=== PATIENT | male | born 1995 | race Caucasian/White ===

== ENCOUNTER 2017-08-24 20:57 | Emergency (ER) | payer SELFPAY ==
[~2017-08-24] VITALS: Ht 162.6 cm; Wt 80.6 kg
[2017-08-24 21:01] VITALS: TEMP 37.4; Ht 162.6 cm; Wt 80.6 kg
[2017-08-24] MEDS ORDERED: SODIUM CHLORIDE 0.9% 1000ML 1,000 ML IV STA (21:22)
--- NOTE | 2017-08-24 21:28 | EMERGENCY ROOM VISIT NOTE ---
History Report prepared by Ceciliaibanival: Colby Prater Under the Supervision of: Dr. Juan Palmer M.D. First contact with patient: 21:15 Chief Complaint: CHEST PAIN Stated Complaint: CHEST PAIN, HEART SKIPPING, DIZZY, BLACKING OUT History of Present Illness The patient is a 22 year old male who presents to the Emergency Room with complaints of constant chest pain that started yesterday. He rates his discomfort as a 5/10 in severity. He states that his symptoms are worsened with walking around. The patient states that he has episodes where he notices his heart "skips a beat" and he becomes dizzy. He states that he becomes short of breath and then "blacks out". The patient admits that his last episode was here in the ED. He admits to a history of viral meningitis and admits that his father has a history of atrial fibrillation that started at age 35. The patient states that he occasionally drinks alcohol. He denies smoking, drug use, medication use, a PCP, a family history of blood clots, and recent travel. Source of History: patient Onset: yesterday Position: chest Symptom Intensity: 5/10 Timing: constant Modifying Factors (Worsening): other (walking around) Associated Symptoms: + SOB Review of Systems See HPI for pertinent positives & negatives. A total of 10 systems reviewed and were otherwise negative. Past Medical & Surgical Medical Problems: (1) No Known Active Medical Problems Family History Diabetes mellitus Heart disease Hypertension Social History Smoking Status: Never Smoker Alcohol Use: occasionally Drug Use: none Marital Status: single Housing Status: lives with family Occupation Status: unemployed Current/Historical Medications Scheduled Doxycycline Monohydrate (Monodox), 100 MG PO BID Allergies Coded Allergies: No Known Allergies (Unverified , 05/08/15) Physical Exam Vital Signs Date Time Temp Pulse Resp B/P (MAP) Pulse Ox O2 Delivery O2 Flow Rate FiO2 08/25/17 00:29 75 18 108/65 97 08/24/17 23:09 81 22 111/77 99 Room Air 08/24/17 21:54 98 Room Air 08/24/17 21:52 98 Room Air 08/24/17 21:52 98 Room Air 08/24/17 21:52 96 18 114/80 98 Room Air 08/24/17 21:38 102 08/24/17 21:01 37.4 119 18 140/83 99 Room Air Physical Exam GENERAL: Patient is a healthy-appearing well-nourished 22 year old male HEAD: Normocephalic atraumatic EYES: Ocular movements intact pupils equal and react to light OROPHARYNX mucous membranes are moist no exudates present no erythema or edema present NECK: Supple no nuchal rigidity CHEST: Good equal expansion LUNGS: Clear and equal to auscultation CARDIAC: Normal S1 and S2 ABDOMEN: Soft nontender no guarding BACK: No CVA tenderness EXTREMITIES: No pain upon palpation normal muscle strength in all groups no clubbing cyanosis or edema NEURO: Patient is following commands and answering questions appropriately. Alert and oriented x3 Cranial Nerves 2-12 grossly intact Medical Decision & Procedures ER Provider Diagnostic Interpretation: X-ray results as stated below per interpretation by me and the radiologist: CHEST ONE VIEW PORTABLE CLINICAL HISTORY: CHEST PAIN dyspnea COMPARISON STUDY: 05/08/2015 FINDINGS: Mild interstitial prominence left lung base. Lungs otherwise are clear. Diaphragms smooth. Calcifications are sharp. IMPRESSION: Mild interstitial prominence left lung base. Otherwise negative study The above report was generated using voice recognition software. It may contain grammatical, syntax or spelling errors. Electronically signed by: Khai Trinidad M.D. 08/24/2017 9:43 PM Dictated Date/Time: 08/24/2017 9:42 PM Laboratory Results 08/24/17 21:42 Red Blood Count 4.79, Mean Corpuscular Volume 84.6, Mean Corpuscular Hemoglobin 28.4, Mean Corpuscular Hemoglobin Concent 33.6, Mean Platelet Volume 10.4, Neutrophils (%) (Auto) 65.7, Lymphocytes (%) (Auto) 25.8, Monocytes (%) (Auto) 7.5, Eosinophils (%) (Auto) 0.7, Basophils (%) (Auto) 0.1, Neutrophils # (Auto) 8.75, Lymphocytes # (Auto) 3.44, Monocytes # (Auto) 1.00, Eosinophils # (Auto) 0.10, Basophils # (Auto) 0.02 08/24/17 21:42 Test 08/24/17 21:42 08/24/17 23:10 White Blood Count 13.34 K/uL (4.8-10.8) Red Blood Count 4.79 M/uL (4.7-6.1) Hemoglobin 13.6 g/dL (14.0-18.0) Hematocrit 40.5 % (42-52) Mean Corpuscular Volume 84.6 fL (80-100) Mean Corpuscular Hemoglobin 28.4 pg (25-34) Mean Corpuscular Hemoglobin Concent 33.6 g/dl (32-36) Platelet Count 292 K/uL (130-400) Mean Platelet Volume 10.4 fL (7.4-10.4) Neutrophils (%) (Auto) 65.7 % Lymphocytes (%) (Auto) 25.8 % Monocytes (%) (Auto) 7.5 % Eosinophils (%) (Auto) 0.7 % Basophils (%) (Auto) 0.1 % Neutrophils # (Auto) 8.75 K/uL (1.4-6.5) Lymphocytes # (Auto) 3.44 K/uL (1.2-3.4) Monocytes # (Auto) 1.00 K/uL (0.11-0.59) Eosinophils # (Auto) 0.10 K/uL (0-0.5) Basophils # (Auto) 0.02 K/uL (0-0.2) RDW Standard Deviation 40.2 fL (36.4-46.3) RDW Coefficient of Variation 13.2 % (11.5-14.5) Immature Granulocyte % (Auto) 0.2 % Immature Granulocyte # (Auto) 0.03 K/uL (0.00-0.02) Anion Gap 13.0 mmol/L (3-11) Est Creatinine Clear Calc Drug Dose 91.0 ml/min Estimated GFR () 97.5 Estimated GFR (Non- 84.1 BUN/Creatinine Ratio 15.2 (10-20) Calcium Level 9.2 mg/dl (8.5-10.1) Total Bilirubin 0.2 mg/dl (0.2-1) Direct Bilirubin mg/dl (0-0.2) Aspartate Amino Transf (AST/SGOT) 26 U/L (15-37) Alanine Aminotransferase (ALT/SGPT) 43 U/L (12-78) Alkaline Phosphatase 85 U/L (45-117) Total Creatine Kinase 183 U/L (39-308) Creatine Kinase MB 1.2 ng/ml (0.5-3.6) Creatine Kinase MB Ratio 0.7 (0-3.0) Troponin I < 0.015 ng/ml (0-0.045) Total Protein 7.5 gm/dl (6.4-8.2) Albumin 3.9 gm/dl (3.4-5.0) Lipase 142 U/L (73-393) Chemistry Specimen Hemolysis Lyme Disease IgG Antibody NEG (NEG) Lyme Disease IgM Antibody NEG (NEG) Labs reviewed by ED physician. Medications Administered Medications (Trade) Dose Ordered Sig/Sherri Route Start Time Stop Time Status Last Admin Dose Admin Sodium Chloride 1,000 ml @ 999 mls/hr Q1H1M STAT IV 08/24/17 21:22 08/24/17 22:22 DC 08/24/17 21:55 999 MLS/HR Doxycycline Hyclate (Vibramycin Cap) 100 mg ONE STAT PO 08/24/17 22:44 08/24/17 22:46 DC 08/24/17 23:08 100 MG Albuterol (Ventolin Hfa Inhaler) 2 puffs NOW STAT INH 08/24/17 22:44 08/24/17 22:46 DC 08/24/17 23:08 2 PUFFS ECG Indication: chest pain Rate (beats per minute): 108 Rhythm: sinus tachycardia Findings: no acute ischemic change, no ectopy Change: Repeat EKG: Normal Sinus with a rate of 90. No acute ischemic changes or ectopy. ED Course 2117: Past medical records reviewed. The patient was evaluated in room C03. A complete history and physical examination was performed. 2121: Ordered Sodium Chloride 1000 ml @ 999 mls/hr IV. 2243: Ordered Albuterol 2 puffs INH, Vibramycin Cap 100 mg PO. Medical Decision The differential diagnosis includes etiologies such as cardiac ischemia, aortic dissection, pulmonary embolism, pneumonia, pneumothorax, musculoskeletal, infections, pericarditis, myocarditis, esophageal rupture, gastrointestinal, as well as others were entertained. This is a 22-year-old male who presents emergency department complaining of chest pain. He is also complaining of palpitations. The patient noted several times during his stay in the emergency department when he was having the palpitations however they never registered on the monitor technician and based on this I feel that the patient is not suffering from a cardiac arrhythmia or palpitations. In addition he also appears to have pneumonia on his chest x-ray set and has no elevation in his white blood count cell count for this reason the patient was started on antibiotics. The CAT scan of his chest is normal I feel that the patient is well enough to be discharged home for follow-up with cardiology. Patient was in agreement with the treatment plan Medication Reconcilliation Current Medication List: was personally reviewed by me Blood Pressure Screening Patient's blood pressure: Normal blood pressure Impression Primary Impression: Left sided chest pain Scribe Attestation The scribe's documentation has been prepared under my direction and personally reviewed by me in its entirety. I confirm that the note above accurately reflects all work, treatment, procedures, and medical decision making performed by me. Departure Information Dispostion Home / Self-Care Prescriptions Doxycycline Monohydrate (Monodox) 100 Mg Cap 100 MG PO BID for 10 Days, #20 CAP Prov: Juan Palmer MD 08/25/17 Referrals No Doctor, Assigned (PCP) Patient Instructions My [facility]
--- NOTE | 2017-08-24 21:44 | DIAGNOSTIC IMAGING REPORT ---
CHEST ONE VIEW PORTABLE CLINICAL HISTORY: CHEST PAIN dyspnea COMPARISON STUDY: 05/08/2015 FINDINGS: Mild interstitial prominence left lung base. Lungs otherwise are clear. Diaphragms smooth. Calcifications are sharp. IMPRESSION: Mild interstitial prominence left lung base. Otherwise negative study The above report was generated using voice recognition software. It may contain grammatical, syntax or spelling errors. Electronically signed by: Khai Trinidad M.D. 08/24/2017 9:43 PM Dictated Date/Time: 08/24/2017 9:42 PM
[2017-08-24 21:52] VITALS: O2SAT 98
[2017-08-24 21:57] LABS: BASO % 0.1 %; BASO ABS # 0.02 K/uL (0-0.2); COMPLETE YES; EOS % 0.7 %; HEMATOCRIT 40.5 % (42-52); IG% 0.2 %; LYMPH % 25.8 %; LYMPH ABS # 3.44 K/uL (1.2-3.4); MEAN CELL VOLUME 84.6 fL (80-100); MEAN CORPUSCULAR HEMOGLOBIN 28.4 pg (25-34); MEAN CORPUSCULAR HGB CONC 33.6 g/dl (32-36); MEAN PLATELET VOLUME 10.4 fL (7.4-10.4); MONO % 7.5 %; NEUT % 65.7 %; PLATELET COUNT 292 K/uL (130-400); RED BLOOD COUNT 4.79 M/uL (4.7-6.1); WHITE BLOOD COUNT 13.34 K/uL (4.8-10.8)
[2017-08-24 22:21] LABS: ALKALINE PHOSPHATASE 85 U/L (45-117); ALT/SGPT 43 U/L (12-78); AST/SGOT 26 U/L (15-37); BLOOD UREA NITROGEN 18 mg/dl (7-18); BUN/CREATININE RATIO 15.2 (10-20); CALCIUM 9.2 mg/dl (8.5-10.1); CARBON DIOXIDE 21 mmol/L (21-32); CHLORIDE 106 mmol/L (98-107); CKMB/CK RATIO 0.7 (0-3.0); GLUCOSE 91 mg/dl (70-99); POTASSIUM 3.5 mmol/L (3.5-5.1); SODIUM 140 mmol/L (136-145)
[2017-08-24] MEDS ORDERED: DOXYCYCLINE HYCLATE 100 MG CAP PO STA (22:44)
[2017-08-24] MEDS ORDERED: ALBUTEROL HFA 8 GM INHALER INH STA (22:44)
[2017-08-24] MEDS ORDERED: OPTIRAY 320 IV PRN (23:15)
[2017-08-25 00:20] LABS: LYME DISEASE AB IGG NEG (NEG); LYME DISEASE AB IGM NEG (NEG)
[2017-08-25 00:29] VITALS: BP 108/65; PULSE 75; O2SAT 97
[2017-08-25] MEDS ORDERED: DOXY100C76 PO (00:54)
--- NOTE | 2017-08-25 07:07 | DIAGNOSTIC IMAGING REPORT ---
(CHEST FOR PE) ANGIO WITH CLINICAL HISTORY: 22 years-old Male presenting with ^Pt c/o left sided chest pain. TECHNIQUE: Multidetector CT angiography of the chest was performed after administration of intravenous contrast. 3-D volumetric and/or maximum intensity projection (MIP) images were subsequently reconstructed for review. IV contrast: None. A dose lowering technique was used consistent with the principles of ALARA (as low as reasonably achievable). COMPARISON: 02/26/2013. CT DOSE (mGy.cm): The estimated cumulative dose is 341.21 mGy.cm. FINDINGS: Computerized [employer] topogram: Unremarkable. Pulmonary vasculature: The study is suboptimal secondary to extensive respiratory motion artifact degrading evaluation of segmental and subsegmental pulmonary arteries. Allowing for this limitation, no central filling defect within the main, right or left, or lobar pulmonary arteries. Main pulmonary artery is not enlarged. No flattening of the interventricular septum. No intracardiac intracardiac filling defect. No reflux of contrast into the hepatic veins. Remaining chest: On soft tissue windows, normal thyroid and thoracic inlet. No axillary, supraclavicular, hilar, or mediastinal lymphadenopathy. Normal aorta. Top normal in size. No pericardial or pleural effusion. Upper abdomen normal. On lung windows, extensive respiratory motion artifact limits evaluation of the lung parenchyma. Allowing for this, minimal dependent changes noted consistent with atelectasis. No other focal infiltrate or nodule. Airways patent. On bone windows, normal osseous structures. IMPRESSION: 1. Examination suboptimal secondary to respiratory motion artifact. Allowing for this, no evidence of a central pulmonary embolus. No convincing evidence of acute intrathoracic pathology. Electronically signed by: Jose Guadalupe Mera M.D. 08/25/2017 7:06 AM Dictated Date/Time: 08/25/2017 7:03 AM
== END 2017-08-25 01:04 | disposition home or self-care (01) ==
LOC: C.EDB 20:58 → C.EDC 08-25 01:04
DX: R07.9 Chest pain, unspecified (principal); Z83.3 Family history of diabetes mellitus; J18.9 Pneumonia, unspecified organism; Z82.49 Family history of ischemic heart disease and other diseases of the circulatory system